=== PATIENT | female | born 1930 | race Caucasian/White ===

== ENCOUNTER 2017-04-25 14:18 | Emergency (ER) | payer OTHER ==
[2017-04-25 14:29] VITALS: BP 155/77; PULSE 74; TEMP 98.4; BMI 25.6
[2017-04-25] MEDS ORDERED: LIDOCAINE HCL 2% (20ML MULTI-DOSE VIAL) NR ONE (14:47)
[2017-04-25] MEDS ORDERED: AMOX TR/POT CLAV 875MG/125MG TABLETS (FP) PO ONE (15:19)
[2017-04-25] MEDS ORDERED: DIPHTH,PERTUSS(ACELL),TET 0.5 ML DISP.SYRIN IM ONE (15:19)
--- NOTE | 2017-04-25 15:19 | PDOC ---
History of Present Illness - General History Source: Patient Exam Limitations: No Limitations - History of Present Illness Initial Comments: 04/25/17 15:13 <Yasemin Cedeño - Last Filed: 04/25/17 15:13> - General History Source: Patient Exam Limitations: No Limitations - History of Present Illness Initial Comments: 04/25/17 15:20 The patient is a 86 year old female with a significant past medical history of HTN, HLD, who presents to the ED with her gibbs ring clasp protruded through the skin in the 3rd digit of the left hand. Patient states she was walking when she accidently got the clasp stuck in her finger. Patient complains of numbness to the tip of the finger. SHe states there was some bleeding from the finger. Patient does not remember her last tetanus shot. Patient is otherwise healthy. PCP: Dr. Colvin <Jona Barber - Last Filed: 04/25/17 15:22> - General Chief Complaint: Foreign Body (FB) Stated Complaint: FOREIGN BODY TO LEFT 3RD FINGER Time Seen by Provider: 04/25/17 14:34 Past History - Past Medical History Anemia: No Asthma: No Cancer: No Cardiac Disorders: No CVA: No COPD: No CHF: No Dementia: No Diabetes: No GI Disorders: No Disorders: No HTN: Yes (patient forgot to take her medications today) Hypercholesterolemia: Yes Liver Disease: No Seizures: No Thyroid Disease: No - Surgical History Appendectomy: Yes - Suicide/Smoking/Psychosocial Hx Smoking History: Never smoked Have you smoked in the past 12 months: No Information on smoking cessation initiated: No Hx Alcohol Use: No Drug/Substance Use Hx: No Substance Use Type: None Hx Substance Use Treatment: No <Yasemin Cedeño - Last Filed: 04/25/17 15:13> <Jona Barber - Last Filed: 04/25/17 15:22> - Past Medical History Allergies/Adverse Reactions: Allergies Allergy/AdvReac Type Severity Reaction Status Date / Time No Known Drug Allergies Allergy Verified 04/25/17 14:20 Home Medications: Ambulatory Orders Calcium Carbonate/Vitamin D3 [Calcium 600-Vit D3 200 Tablet] 1 each PO DAILY tablet 11/24/16 Red Yeast Rice 600 mg PO DAILY tablet 11/24/16 Amoxicillin/Potassium Clav [Augmentin 875-125 Tablet] 1 each PO BID #14 tablet MDD 2 04/25/17 Review of Systems - Review of Systems Able to Perform ROS?: Yes Comments:: 04/25/17 15:20 GENERAL/CONSTITUTIONAL: No fever or chills. No weakness. HEAD, EYES, EARS, NOSE AND THROAT: No change in vision. No ear pain or discharge. No sore throat. CARDIOVASCULAR: No chest pain or shortness of breath. RESPIRATORY: No cough, wheezing, or hemoptysis. GASTROINTESTINAL: No nausea, vomiting, diarrhea or constipation. GENITOURINARY: No dysuria, frequency, or change in urination. MUSCULOSKELETAL: No joint or muscle swelling or pain. No neck or back pain. SKIN: + clasp went through and through middle finger of the left hand. NEUROLOGIC: No headache, vertigo, loss of consciousness, or change in strength/ sensation. ENDOCRINE: No increased thirst. No abnormal weight change. HEMATOLOGIC/LYMPHATIC: No anemia, easy bleeding, or history of blood clots. ALLERGIC/IMMUNOLOGIC: No hives or skin allergy. <Jona Barber - Last Filed: 04/25/17 15:22> *Physical Exam - Vital Signs Last Vital Signs Temp Pulse Resp BP Pulse Ox 98.4 F 74 18 155/77 97 04/25/17 14:19 04/25/17 14:19 04/25/17 14:19 04/25/17 14:19 04/25/17 14:19 <Yasemin Cedeño - Last Filed: 04/25/17 15:13> - Vital Signs Last Vital Signs Temp Pulse Resp BP Pulse Ox 98.4 F 74 18 155/77 97 04/25/17 14:19 04/25/17 14:19 04/25/17 14:19 04/25/17 14:19 04/25/17 14:19 - Physical Exam Comments: 04/25/17 15:21 GENERAL: Awake, alert, and fully oriented, in no acute distress HEAD: No signs of trauma EYES: PERRLA, EOMI, sclera anicteric, conjunctiva clear ENT: Auricles normal inspection, hearing grossly normal, nares patent, oropharynx clear without exudates. Moist mucosa NECK: Normal ROM, supple, no lymphadenopathy, JVD, or masses LUNGS: Breath sounds equal, clear to auscultation bilaterally. No wheezes, and no crackles HEART: Regular rate and rhythm, normal S1 and S2, no murmurs, rubs or gallops ABDOMEN: Soft, nontender, normoactive bowel sounds. No guarding, no rebound. No masses EXTREMITIES: Normal range of motion, no edema. No clubbing or cyanosis. No cords, erythema, or tenderness NEUROLOGICAL: Cranial nerves II through XII grossly intact. Normal speech, normal gait SKIN: ring clasp through and through on her vular left middle finger distally and neurovascularly intact. <Jona Barber - Last Filed: 04/25/17 15:22> Medical Decision Making - Medical Decision Making 04/25/17 15:13 foreign body to left middle finger. removed. soaked in betadine and water. irrigated. bacitracin. left open to heal intentionally as small , puncture wound. will treat with antibiotics twice daily augmentin, daily soaks and topical antiobiotics. bacitracin. 04/25/17 15:14 04/25/17 15:17 <Yasemin Cedeño - Last Filed: 04/25/17 15:13> *DC/Admit/Observation/Transfer - Discharge Dispostion Admit: No <Yasemin Cedeño - Last Filed: 04/25/17 15:13> - Attestations Scribe Attestion: 04/25/17 15:22 Documentation prepared by Jona Barber, acting as medical massage therapist for Yasemin Cedeño MD, MD. <Jona Barber - Last Filed: 04/25/17 15:22> Diagnosis at time of Disposition: Puncture wound, Foreign body hand - Discharge Dispostion Disposition: HOME Condition at time of disposition: Improved - Prescriptions Prescriptions: Amoxicillin/Potassium Clav [Augmentin 875-125 Tablet] 1 each PO BID #14 tablet MDD 2 - Patient Instructions Printed Discharge Instructions: DI for Removal of Foreign Body From Skin, DI for Puncture Wound Additional Instructions: take ibuprofen 400 mg every 8 hours as needed for pain. you should take augmentin 875 mg twicd daily x 1 week. soak finger in mild soap and water twice daily. apply bacitracin ointment. return for any redness, yellow drainage or signs of infection. yo were given a tetanus shot today. you are good for 5 years.
[2017-04-25] MEDS ORDERED: IBUPROFEN 600 MG TABLET (FP) PO ONE ×2 (15:20→15:23)
[2017-04-25] MEDS ORDERED: AMOX TR/POT CLAV 875MG/125MG TABLETS (FP) ONE (15:23)
== END 2017-04-25 15:34 | disposition home or self-care (01) ==
LOC: FER 14:18
PROC: 3E0234Z Introduction of Serum, Toxoid and Vaccine into Muscle, Percutaneous Approach (ICD-10-PCS; principal; 2017-04-25)
DX: S60.453A Superficial foreign body of left middle finger, initial encounter (principal); S61.233A Puncture wound without foreign body of left middle finger without damage to nail, initial encounter; I10 Essential (primary) hypertension; E78.5 Hyperlipidemia, unspecified
CPT/HCPCS: 90715; 99282-25

== ENCOUNTER 2019-08-14 07:34 | Day surgery (SDC) | payer OTHER, MEDICARE ==
[2019-08-03 16:15] VITALS: BMI 23.2
[~2019-08-14 07:34] MED LIST: CYCLOPENTOLATE HCL 1% OPHTH SOLN 2 ML BOTTLE OD SCH; KETOROLAC TROMETHAMINE 0.5% EYE DROP 1 DROP DROPS OD SCH; OFLOXACIN 0.3% OPHTHALMIC SOLUTION 5 ML BOTTLE OD SCH; PHENYLEPHRINE 2.5% OPHTH SOLN 15 ML BOTTLE OD SCH; TROPICAMIDE 1% OPHTH SOLN 15 ML BOTTLE OD SCH
[2019-08-14] MEDS ORDERED: PHENYLEPHRINE 2.5% OPHTH SOLN 15 ML BOTTLE ONE (07:50)
[2019-08-14] MEDS ORDERED: OFLOXACIN 0.3% OPHTHALMIC SOLUTION 5 ML BOTTLE ONE (07:50)
[2019-08-14] MEDS ORDERED: KETOROLAC TROMETHAMINE 0.5% EYE DROP 1 DROP DROPS ONE (07:50)
[2019-08-14] MEDS ORDERED: CYCLOPENTOLATE HCL 1% OPHTH SOLN 2 ML BOTTLE ONE (07:50)
[2019-08-14] MEDS ORDERED: TROPICAMIDE 1% OPHTH SOLN 15 ML BOTTLE ONE (07:50)
[2019-08-14] MEDS ORDERED: CYCLOPENTOLATE HCL 1% OPHTH SOLN 2 ML BOTTLE OD ONE ×3 (08:15→08:25)
[2019-08-14] MEDS ORDERED: TROPICAMIDE 1% OPHTH SOLN 15 ML BOTTLE OD ONE ×3 (08:15→08:25)
[2019-08-14] MEDS ORDERED: KETOROLAC TROMETHAMINE 0.5% EYE DROP 1 DROP DROPS OD ONE ×3 (08:15→08:25)
[2019-08-14] MEDS ORDERED: OFLOXACIN 0.3% OPHTHALMIC SOLUTION 5 ML BOTTLE OD ONE ×3 (08:15→08:25)
[2019-08-14] MEDS ORDERED: PHENYLEPHRINE 2.5% OPHTH SOLN 15 ML BOTTLE OD ONE ×3 (08:15→08:25)
[2019-08-14] MEDS ORDERED: BACITRACIN/POLYMYXIN OPH OINT 3.5 GM TUBE ONE (09:07)
[2019-08-14] MEDS ORDERED: BETAXOLOL HCL 0.25% OPHTHALMIC 10 ML DROPSBTL ONE (09:07)
[2019-08-14] MEDS ORDERED: EPI-SHUGARCAINE (EPINEPHRINE 0.025% & LIDOCAINE-PF 0.75%) 4ML ONE (09:07)
[2019-08-14] MEDS ORDERED: TETRACAINE 0.5% OPHTH SOLN 2 ML BOTTLE ONE (09:07)
[2019-08-14] MEDS ORDERED: POVIDONE-IODINE 5% OPHTHALMIC PREP 30 ML SOLUTION ONE (09:07)
[2019-08-14] MEDS ORDERED: NEO/POLYMYX B SULF/DEXAMETH OPHTHALMIC 5ML BOTTLE ONE (09:08)
[2019-08-14] MEDS ORDERED: MIDAZOLAM HCL 2 MG/2 ML SINGLE DOSE VIAL ONE (09:12)
[2019-08-14] MEDS ORDERED: ACETAMINOPHEN 325 MG TABLET (FP) PO PRN (10:21)
[2019-08-14 10:37] VITALS: TEMP 97.9
--- NOTE | 2019-08-14 11:20 | OP ---
DATE OF OPERATION: 08/14/2019 PREOPERATIVE DIAGNOSIS: Cataract, right eye. POSTOPERATIVE DIAGNOSIS: Cataract, right eye. PROCEDURE: Cataract extraction via phacoemulsification with insertion of posterior chamber lens implant, right eye; limbal relaxing incision, right eye. SURGEON: Rudy Florian MD HOME ORGANIZER: Caroline Godoy MD ANESTHESIA: Topical with sedation. ESTIMATED BLOOD LOSS: Less than 1 mL. COMPLICATIONS: None. SPECIMENS: None. DESCRIPTION OF PROCEDURE: The patient was identified in the holding area. After all risks, benefits, and alternatives were explained to the patient, informed consent was obtained. The right eye was marked with a marking pen. The patient then entered the operating room on an eye stretcher. After a formal timeout was performed, topical tetracaine eye drops were instilled onto the right eye. The patient was then instructed to sit up and look straight ahead, and the axes of the astigmatism were marked onto the right cornea using a toric bubble marker and a toric marking pen. The patient was then instructed to lie back down, and the right eye was prepped and draped in the usual sterile fashion. An eyelid speculum was placed beneath the eyelids of the right eye. Then, using a toric dial and toric marking pen, the axis of the astigmatism was marked which was noted to be 10 degrees. Then, flanking padilla were made to create a 35-degree arcuate. Incision location straddling the meridian at 10 degrees. Then, a iza blade was then used to create again a 35-degree arcuate incision with the center at 10 degrees on the nasal cornea. Then, a superotemporal paracentesis incision was created using a 15-degree blade. Topical preservative-free epinephrine and preservative-free lidocaine were then injected into the anterior chamber, and viscoelastic was then injected into the anterior chamber. A 2.4-mm keratome blade was then used to make an inferotemporal incision. A 360-degree, continuous curvilinear capsulorrhexis was then created using bent cystotome and Utrata forceps. Hydrodissection was performed using balanced saline solution on a cannula. Phacoemulsification was introduced to disassemble and remove the nucleus in its entirety. Irrigation/aspiration was then used to remove any remaining cortical material from the eye. The capsular bag was reformed using viscoelastic. An Fabiano model [id number] with a power of 21.0 diopters, serial number [id number] was inspected and found to be defect free and injected into the capsular bag. Irrigation/aspiration was then used to remove any remaining viscoelastic from the eye. The anterior chamber was reformed using balanced saline solution. All wounds were hydrated with balanced saline solution and noted to be watertight. There was a red reflex present. The lens was perfectly centered in the capsular bag. The eye had an adequate pressure, and there was a red reflex present. Topical antibiotic eye drops were then administered to the right eye. The eyelid speculum was removed from the right eye. The right eye was shielded. The patient tolerated the procedure well, left the operating room in stable condition to follow up in the eye clinic the following morning at 10:00. RUDY FLORIAN M.D. DANIEL/[id number]
[2019-08-14 12:47] VITALS: BP 126/68; PULSE 58
== END 2019-08-14 11:05 | disposition home or self-care (01) ==
LOC: FASU 07:34
PROVIDERS: ATTEND Ophthalmology
PROC: 08RJ3JZ Replacement of Right Lens with Synthetic Substitute, Percutaneous Approach (ICD-10-PCS; principal; 2019-08-14 09:50)
DX: H26.9 Unspecified cataract (principal)

== ENCOUNTER 2019-08-28 06:57 | Day surgery (SDC) | payer OTHER, MEDICARE ==
[2019-08-06 17:00] VITALS: BMI 23.2
[2019-08-28] MEDS ORDERED: OFLOXACIN 0.3% OPHTHALMIC SOLUTION 5 ML BOTTLE ONE (07:24)
[2019-08-28] MEDS ORDERED: TROPICAMIDE 1% OPHTH SOLN 15 ML BOTTLE ONE (07:24)
[2019-08-28] MEDS ORDERED: CYCLOPENTOLATE HCL 1% OPHTH SOLN 2 ML BOTTLE ONE (07:24)
[2019-08-28] MEDS ORDERED: PHENYLEPHRINE 2.5% OPHTH SOLN 15 ML BOTTLE ONE (07:24)
[2019-08-28] MEDS ORDERED: KETOROLAC TROMETHAMINE 0.5% EYE DROP 1 DROP DROPS ONE (07:24)
[2019-08-28] MEDS: CYCLOPENTOLATE HCL 1% OPHTH SOLN 2 ML BOTTLE OS SCH ×5 (07:35→07:55)
[2019-08-28] MEDS: PHENYLEPHRINE 2.5% OPHTH SOLN 15 ML BOTTLE OS SCH ×5 (07:35→07:55)
[2019-08-28] MEDS: OFLOXACIN 0.3% OPHTHALMIC SOLUTION 5 ML BOTTLE OS SCH ×5 (07:35→07:55)
[2019-08-28] MEDS: TROPICAMIDE 1% OPHTH SOLN 15 ML BOTTLE OS SCH ×5 (07:35→07:55)
[2019-08-28] MEDS: KETOROLAC TROMETHAMINE 0.5% EYE DROP 1 DROP DROPS OS SCH ×5 (07:35→07:55)
[2019-08-28 07:42] VITALS: TEMP 97.8
[2019-08-28] MEDS ORDERED: EPI-SHUGARCAINE (EPINEPHRINE 0.025% & LIDOCAINE-PF 0.75%) 4ML ONE (08:44)
[2019-08-28] MEDS ORDERED: BETAXOLOL HCL 0.25% OPHTHALMIC 10 ML DROPSBTL ONE (08:44)
[2019-08-28] MEDS ORDERED: BACITRACIN/POLYMYXIN OPH OINT 3.5 GM TUBE ONE (08:44)
[2019-08-28] MEDS ORDERED: TETRACAINE 0.5% OPHTH SOLN 2 ML BOTTLE ONE (08:45)
[2019-08-28] MEDS ORDERED: NEO/POLYMYX B SULF/DEXAMETH OPHTHALMIC 5ML BOTTLE ONE (08:45)
[2019-08-28] MEDS ORDERED: POVIDONE-IODINE 5% OPHTHALMIC PREP 30 ML SOLUTION ONE (08:45)
[2019-08-28] MEDS ORDERED: MIDAZOLAM HCL 2 MG/2 ML SINGLE DOSE VIAL ONE (09:13)
[2019-08-28] MEDS ORDERED: BSS (NA/CA/MG/K) BALANCED SALT SOLUTION OPHTH SOLN 15 ML BOTTLE ONE (09:28)
[2019-08-28] MEDS ORDERED: ACETAMINOPHEN 325 MG TABLET (FP) PO PRN (10:08)
--- NOTE | 2019-08-28 10:41 | OP ---
DATE OF OPERATION: 08/28/2019 PREOPERATIVE DIAGNOSIS: Cataract, left eye. POSTOPERATIVE DIAGNOSIS: Cataract, left eye. PROCEDURE: Cataract extraction via phacoemulsification with insertion of posterior chamber lens implant, left eye. SURGEON: Rudy Florian MD MANUFACTURING ENGINEER CHIEF: Caroline Godoy MD ANESTHESIA: Topical with sedation. ESTIMATED BLOOD LOSS: Less than 1 mL. COMPLICATIONS: None. SPECIMENS: None. DESCRIPTION OF PROCEDURE: The patient was identified in the holding area. After all risks, benefits, and alternatives were explained to the patient, informed consent was obtained. The left eye was marked with a marking pen. The patient then entered the operating room on an eye stretcher. After a formal time-out was performed, topical tetracaine eye drops were instilled onto the left eye. The patient was then instructed to sit up and look straight ahead, and the cardinal axes of astigmatism were marked using a Toric bubble marker and a Toric marking pen. The patient was then instructed to sit back down. The left eye was prepped and draped in the usual sterile fashion. An eyelid speculum was placed beneath the eyelid of the left eye. Then the axis of astigmatism was marked onto the cornea using a Toric marking pen and a Toric dial, which was noted to be about 5 degrees. Then bracketing padilla were made approximately 10 degrees on each side of the cornea. Then a limbal relaxing incision was created at about 500 micron depth for about a 30-degree arch. This was done on the nasal cornea. Then an inferotemporal paracentesis incision was created using a 15-degree blade. Topical preservative-free epinephrine and preservative-free lidocaine were then injected into the anterior chamber. Viscoelastic was then injected into the anterior chamber. A 2.4-mm keratome blade was then used to make a superotemporal incision. A 360-degree continuous curvilinear capsulorrhexis was then created using bent cystotome and Utrata forceps. Hydrodissection was performed using balanced saline solution on a cannula. Phacoemulsification was introduced to disassemble and remove the nucleus in its entirety. Irrigation/aspiration was then used to remove any remaining cortical material from the eye. The capsular bag was reformed using viscoelastic. An Fabiano Model [id number] with a power of 22.0 diopter serial number [id number] was inspected, found to be defect free, and injected into the capsular bag. Irrigation/aspiration was then used to remove any remaining viscoelastic from the eye. All wounds were hydrated with balanced saline solution and noted to be watertight. There was a red reflex present. The anterior chamber was deep. The lens was perfectly centered in the capsular bag, and the eye had an adequate pressure. Topical antibiotic eyedrops and ointment were then administered to the left eye. The eyelid speculum was removed from the left eye. The left eye was shielded. The patient tolerated the procedure well. Left the operating room in stable condition to follow up in the eye clinic tomorrow morning at 10 o'clock. RUDY FLORIAN M.D. [id number]
[2019-08-28 10:44] VITALS: BP 138/72; PULSE 55
== END 2019-08-28 10:54 | disposition home or self-care (01) ==
LOC: FASU 06:57
PROVIDERS: ATTEND Ophthalmology
PROC: 08RK3JZ Replacement of Left Lens with Synthetic Substitute, Percutaneous Approach (ICD-10-PCS; principal; 2019-08-28 09:28)
DX: H26.9 Unspecified cataract (principal)